=== PATIENT | male | born 1935 | race Caucasian/White ===

== ENCOUNTER 2021-08-31 14:44 | Emergency (ER) | payer MEDICARE ==
[~2021-08-31] VITALS: Ht 175.3 cm; Wt 81.7 kg
[2021-08-31 14:54] VITALS: BP 00/00
== END 2021-08-31 14:54 ==
LOC: M.ERS 14:44
DX: I46.9 Cardiac arrest, cause unspecified (principal); I10 Essential (primary) hypertension; E78.00 Pure hypercholesterolemia, unspecified; Z95.5 Presence of coronary angioplasty implant and graft